=== PATIENT | female | born 1965 | race Caucasian/White ===

== ENCOUNTER 2019-12-21 12:35 | Emergency (ER) | payer MEDICAID ==
[~2019-12-21] VITALS: Ht 162.6 cm; Wt 70.0 kg
[~2019-12-21 12:35] MED LIST: BENZ1TAB70 PO; RISP3 PO
[2019-12-21 14:04] LABS: BASOPHILS % (AUTO) 0.7 % (0.0-2.0); EOSINOPHILS % (AUTO) 2.7 % (1.0-6.0); HEMATOCRIT 42.4 % (36-46); LYMPHOCYTES # (AUTO) 2.3 K/uL (1.0-4.8); LYMPHOCYTES % (AUTO) 33.4 % (22.0-44.0); MEAN CORPUSCULAR HEMOGLOBIN 29.3 pg (26.0-34.0); MEAN CORPUSCULAR HGB CONC 33.1 G/dL (31.0-37.0); MEAN CORPUSCULAR VOLUME 89 fL (80-100); MONOCYTES # (AUTO) 0.5 K/uL (0.1-1.0); MONOCYTES % (AUTO) 7.7 % (2.0-9.0); NEUTROPHILS # (AUTO) 3.9 K/uL (1.8-7.7); NEUTROPHILS % (AUTO) 55.5 % (40.0-70.0); PLATELET COUNT (AUTO) 255 K/uL (150-450); RED BLOOD CELL COUNT(AUTO) 4.79 MIL/uL (4.00-5.20); RED CELL DISTRIBUTION WIDTH 13.8 % (11.5-14.5)
[2019-12-21 14:08] LABS: ANION GAP 2 mmol/L (8-16); CALCIUM, TOTAL 9.3 mg/dL (8.8-10.5); CARBON DIOXIDE 33 mmol/L (22-29); CHLORIDE 104 mmol/L (98-107); CREATININE 0.78 mg/dL (0.60-1.30); GLOMERULAR FILTR. RATE CALC > 60 mL/min (>60); GLUCOSE,RANDOM 118 mg/dL (70-110); POTASSIUM 4.2 mmol/L (3.5-5.1); SODIUM SERUM 139 mmol/L (136-145); UREA NITROGEN, BLOOD 10 mg/dL (7-18)
[2019-12-21 14:14] LABS: ALANINE AMINOTRANSFERASE 21 U/L (12-78); ALBUMIN 3.8 g/dL (3.4-5.0); ALKALINE PHOSPHATASE 77 U/L (46-116); ASPARTATE AMINOTRANSFERASE 13 U/L (15-37); BILIRUBIN,TOTAL 0.2 mg/dL (0.1-1.0); TOTAL PROTEIN, SERUM 7.5 g/dL (6.4-8.2)
[2019-12-21 14:32] LABS: AMPHET/METH SCREEN,URINE NEGATIVE (NEGATIVE); BARBITURATE SCREEN, URINE NEGATIVE (NEGATIVE); BENZODIAZEPINES SCREEN,URINE NEGATIVE (NEGATIVE); CANNABINOID SCREEN,URINE NEGATIVE (NEGATIVE); COCAINE SCREEN,URINE NEGATIVE (NEGATIVE); METHADONE SCREEN, URINE NEGATIVE (NEGATIVE); OPIATE SCREEN,URINE NEGATIVE (NEGATIVE)
[2019-12-21 14:41] LABS: PHENCYCLIDINE SCREEN,URINE NEGATIVE (NEGATIVE)
[2019-12-21 15:05] VITALS: BP 125/76
[2019-12-21] MEDS ORDERED: FluPHENAZine DECANOATE 25 MG/ML IM ONE (15:15)
== END 2019-12-21 15:44 | disposition home or self-care (01) ==
LOC: EMS 12:43
DX: F20.9 Schizophrenia, unspecified (principal); F17.210 Nicotine dependence, cigarettes, uncomplicated; F31.9 Bipolar disorder, unspecified; Z79.899 Other long term (current) drug therapy
CPT/HCPCS: 36415; 80053; 80307; 85025; 96372; 99284; G0480; J2680

== ENCOUNTER 2021-07-11 16:06 | Inpatient (IN) | payer MEDICAID, OTHER ==
[~2021-07-11] VITALS: Ht 162.6 cm; Wt 58.7 kg
[~2021-07-11 16:06] MED LIST changes: -RISP3 PO; +RISP3TAB35 PO
[2021-07-11 16:46] LABS: BASOPHILS % (AUTO) 0.4 % (0.0-2.0); EOSINOPHILS % (AUTO) 1.1 % (1.0-6.0); HEMATOCRIT 36.9 % (36-46); HEMOGLOBIN 12.3 g/dL (12.0-16.0); LYMPHOCYTES # (AUTO) 1.9 K/uL (1.0-4.8); LYMPHOCYTES % (AUTO) 39.9 % (22.0-44.0); MEAN CORPUSCULAR HEMOGLOBIN 29.8 pg (26.0-34.0); MEAN CORPUSCULAR HGB CONC 33.3 G/dL (31.0-37.0); MEAN CORPUSCULAR VOLUME 90 fL (80-100); MONOCYTES # (AUTO) 0.3 K/uL (0.1-1.0); MONOCYTES % (AUTO) 5.8 % (2.0-9.0); NEUTROPHILS # (AUTO) 2.5 K/uL (1.8-7.7); NEUTROPHILS % (AUTO) 52.8 % (40.0-70.0); PLATELET COUNT (AUTO) 229 K/uL (150-450); RED BLOOD CELL COUNT(AUTO) 4.12 MIL/uL (4.00-5.20); RED CELL DISTRIBUTION WIDTH 13.8 % (11.5-14.5)
[2021-07-11 16:57] LABS: ANION GAP 6 mmol/L (8-16); CALCIUM, TOTAL 8.9 mg/dL (8.8-10.5); CARBON DIOXIDE 31 mmol/L (22-29); CHLORIDE 105 mmol/L (98-107); GLOMERULAR FILTR. RATE CALC > 60 mL/min (>60); GLUCOSE,RANDOM 88 mg/dL (70-110); SODIUM SERUM 142 mmol/L (136-145); UREA NITROGEN, BLOOD 8 mg/dL (7-18)
[2021-07-11 17:02] LABS: ALANINE AMINOTRANSFERASE 23 U/L (12-78); ALBUMIN 3.3 g/dL (3.4-5.0); ALKALINE PHOSPHATASE 75 U/L (46-116); ASPARTATE AMINOTRANSFERASE 14 U/L (15-37); BILIRUBIN,TOTAL 0.2 mg/dL (0.1-1.0)
[2021-07-11] MEDS ORDERED: ZOLPIDEM TARTRATE 10 MG TABLET PO PRN (17:30)
[2021-07-11] MEDS ORDERED: FluPHENAZine HCL 5 MG TABLET PO ONE (17:30)
[2021-07-11 17:48] LABS: COVID AG,FIA SOURCE NASOPHARYNGEAL
[2021-07-11 20:00] VITALS: BP 143/80
[2021-07-12] MEDS ORDERED: ALBUTEROL SULFATE HFA 90 MCG/PUFF 8 GM INHALER IH PRN (07:00)
[2021-07-12] MEDS ORDERED: BENZOCAINE/MENTHOL LOZENGE PO PRN (07:00)
[2021-07-12] MEDS ORDERED: OMEPRAZOLE 20 MG CAPSULE PO PRN (07:00)
[2021-07-12] MEDS ORDERED: MAG HYDROX/AL HYDROX/SIMETH ES 30 ML SUSPENSION UDCUP PO PRN (07:00)
[2021-07-12] MEDS ORDERED: IBUPROFEN 600 MG TABLET PO PRN (07:00)
[2021-07-12] MEDS ORDERED: MAGNESIUM HYDROXIDE SUSPENSION 30 ML UDCUP PO PRN (07:00)
[2021-07-12] MEDS ORDERED: PETROLATUM,WHITE 28 GM JELLY TP PRN (07:00)
[2021-07-12] MEDS ORDERED: ACETAMINOPHEN 325 MG TABLET PO PRN (07:00)
[2021-07-12] MEDS ORDERED: ONDANSETRON HCL 4 MG TABLET PO PRN (07:00)
[2021-07-12] MEDS ORDERED: LOPERAMIDE HCL 2 MG CAPSULE PO PRN (07:00)
[2021-07-12] MEDS ORDERED: DOCUSATE SODIUM 100 MG CAPSULE PO PRN (07:00)
[2021-07-12] MEDS ORDERED: BACITRACIN 28 GM OINTMENT TP PRN (07:00)
[2021-07-12] MEDS ORDERED: CloNIDine HCL 0.1 MG TABLET PO PRN (07:00)
[2021-07-12] MEDS: HALOPERIDOL 5 MG TABLET PO PRN (10:00)
[2021-07-12] MEDS: ASPIRIN 81 MG DR TABLET PO SCH (10:00)
[2021-07-12] MEDS: LISINOPRIL 10 MG TABLET PO SCH (10:00)
[2021-07-12] MEDS: NICOTINE 21 MG/24 HOUR PATCH TD SCH (10:07)
[2021-07-12 16:52] VITALS: BP 100/70
[2021-07-12] MEDS: RisperiDONE 3 MG TABLET PO SCH (17:00)
[2021-07-12] MEDS: BENZTROPINE MESYLATE 1 MG TABLET PO SCH (17:00)
[2021-07-12] MEDS: SIMVASTATIN 10 MG TABLET PO SCH (21:01)
[2021-07-13 03:30] VITALS: BP 131/86
[2021-07-13] MEDS: LORazepam 2 MG TABLET PO PRN (03:37)
[2021-07-13 08:00] VITALS: BP 138/69
[2021-07-13] MEDS: ASPIRIN 81 MG DR TABLET PO SCH (08:06)
[2021-07-13] MEDS: LISINOPRIL 10 MG TABLET PO SCH (08:06)
[2021-07-13] MEDS: BENZTROPINE MESYLATE 1 MG TABLET PO SCH ×2 (08:06→16:19)
[2021-07-13] MEDS: RisperiDONE 3 MG TABLET PO SCH (08:06)
[2021-07-13] MEDS: NICOTINE 21 MG/24 HOUR PATCH TD SCH (08:09)
[2021-07-13] MEDS: PERPHENAZINE 8 MG TABLET PO SCH (16:19)
[2021-07-13 16:38] VITALS: BP 127/63
[2021-07-13] MEDS: SIMVASTATIN 10 MG TABLET PO SCH (20:11)
[2021-07-14] MEDS: LORazepam 2 MG TABLET PO PRN ×2 (03:49→20:50)
[2021-07-14] MEDS: LISINOPRIL 10 MG TABLET PO SCH (08:38)
[2021-07-14] MEDS: PERPHENAZINE 8 MG TABLET PO SCH ×2 (08:38→16:52)
[2021-07-14] MEDS: BENZTROPINE MESYLATE 1 MG TABLET PO SCH ×2 (08:38→16:52)
[2021-07-14] MEDS: ASPIRIN 81 MG DR TABLET PO SCH (08:38)
[2021-07-14] MEDS: NICOTINE 21 MG/24 HOUR PATCH TD SCH (08:38)
[2021-07-14] MEDS: SERTRALINE HCL 50 MG TABLET PO SCH (08:38)
[2021-07-14 10:06] VITALS: BP 136/75
[2021-07-14 17:14] VITALS: BP 131/66
[2021-07-14 20:45] VITALS: BP 123/87
[2021-07-14] MEDS: HALOPERIDOL 5 MG TABLET PO PRN (20:50)
[2021-07-14] MEDS: SIMVASTATIN 10 MG TABLET PO SCH (20:50)
[2021-07-15] MEDS: NICOTINE 21 MG/24 HOUR PATCH TD SCH (08:50)
[2021-07-15] MEDS: BENZTROPINE MESYLATE 1 MG TABLET PO SCH ×2 (08:50→16:08)
[2021-07-15] MEDS: SERTRALINE HCL 50 MG TABLET PO SCH (08:50)
[2021-07-15] MEDS: ASPIRIN 81 MG DR TABLET PO SCH (08:51)
[2021-07-15] MEDS: PERPHENAZINE 8 MG TABLET PO SCH ×2 (08:51→16:08)
[2021-07-15] MEDS: LISINOPRIL 10 MG TABLET PO SCH (08:51)
[2021-07-15 16:20] VITALS: BP 116/81
[2021-07-15] MEDS: SIMVASTATIN 10 MG TABLET PO SCH (20:25)
[2021-07-16 08:25] VITALS: BP 122/68
[2021-07-16] MEDS: PERPHENAZINE 8 MG TABLET PO SCH ×2 (08:31→16:14)
[2021-07-16] MEDS: ASPIRIN 81 MG DR TABLET PO SCH (08:31)
[2021-07-16] MEDS: LISINOPRIL 10 MG TABLET PO SCH (08:31)
[2021-07-16] MEDS: SERTRALINE HCL 50 MG TABLET PO SCH (08:31)
[2021-07-16] MEDS: BENZTROPINE MESYLATE 1 MG TABLET PO SCH ×2 (08:40→16:14)
[2021-07-16] MEDS: NICOTINE 21 MG/24 HOUR PATCH TD SCH (08:40)
[2021-07-16] MEDS: SIMVASTATIN 10 MG TABLET PO SCH (20:27)
[2021-07-17] MEDS: BENZTROPINE MESYLATE 1 MG TABLET PO SCH ×2 (09:41→16:22)
[2021-07-17] MEDS: NICOTINE 21 MG/24 HOUR PATCH TD SCH (09:41)
[2021-07-17] MEDS: PERPHENAZINE 8 MG TABLET PO SCH ×2 (09:41→16:22)
[2021-07-17] MEDS: LISINOPRIL 10 MG TABLET PO SCH (09:41)
[2021-07-17] MEDS: SERTRALINE HCL 50 MG TABLET PO SCH (09:42)
[2021-07-17] MEDS: ASPIRIN 81 MG DR TABLET PO SCH (09:42)
[2021-07-17] MEDS: SIMVASTATIN 10 MG TABLET PO SCH (20:26)
[2021-07-18 05:05] VITALS: BP 134/77
[2021-07-18] MEDS: NICOTINE 21 MG/24 HOUR PATCH TD SCH (09:12)
[2021-07-18] MEDS: ASPIRIN 81 MG DR TABLET PO SCH (09:12)
[2021-07-18] MEDS: BENZTROPINE MESYLATE 1 MG TABLET PO SCH (09:12)
[2021-07-18] MEDS: SERTRALINE HCL 50 MG TABLET PO SCH (09:12)
[2021-07-18] MEDS: PERPHENAZINE 8 MG TABLET PO SCH (09:12)
[2021-07-18] MEDS: LISINOPRIL 10 MG TABLET PO SCH (09:12)
[2021-07-18 11:40] VITALS: BP 120/68
[2021-07-18] MEDS: LORazepam 2 MG TABLET PO PRN (11:45)
[2021-07-18] MEDS ORDERED: SIMV-259 PO (12:35)
[2021-07-18] MEDS ORDERED: ASPI-1450 PO (12:35)
[2021-07-18] MEDS ORDERED: LISI-893 PO (12:35)
[2021-07-18] MEDS ORDERED: SERT-158 PO (12:35)
[2021-07-18] MEDS ORDERED: TRIL8 PO (12:35)
== END 2021-07-18 15:30 | disposition home or self-care (01) | DRG 750 ==
LOC: EMS 16:06 → 3EI 18:32
PROVIDERS: ADMIT Psychiatry & Neurology Psychiatry; ATTEND Psychiatry & Neurology Psychiatry
DX: F20.0 Paranoid schizophrenia (principal); E78.5 Hyperlipidemia, unspecified; F31.9 Bipolar disorder, unspecified; Z20.822 Contact with and (suspected) exposure to COVID-19; G47.00 Insomnia, unspecified; I10 Essential (primary) hypertension; J44.9 Chronic obstructive pulmonary disease, unspecified; K59.00 Constipation, unspecified; F17.210 Nicotine dependence, cigarettes, uncomplicated; Z88.8 Allergy status to other drugs, medicaments and biological substances; Z79.899 Other long term (current) drug therapy
CPT/HCPCS: 80053; 80061; 85025; 99285; G0480